=== PATIENT | male | born 1980 | race Caucasian/White ===

== ENCOUNTER 2016-05-25 15:06 | Emergency (ER) | payer SELFPAY ==
[~2016-05-25] VITALS: Ht 167.6 cm; Wt 90.7 kg
[2016-05-25 15:13] VITALS: BP 149/89
--- NOTE | 2016-05-25 15:18 | NUR ---
Patient ambulated to bed 8. RN evaluating patient at bedside.
--- NOTE | 2016-05-25 15:22 | NUR ---
DR WILKINSON ASSESSING THE AAO PT AT BEDSIDE
--- NOTE | 2016-05-25 15:25 | NUR ---
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 ER MD MADE AWARE OF PT STATUS.
[2016-05-25] MEDS ORDERED: NACL 0.9% 1,000 ML IV ONE (15:50)
[2016-05-25] MEDS ORDERED: LORazepam 2 MG/ML VIAL IVP ONE (15:50)
[2016-05-25] MEDS ORDERED: PANTOPRAZOLE 40 MG INJ VIAL IVP ONE (15:50)
[2016-05-25 16:44] VITALS: BP 128/66
--- NOTE | 2016-05-25 16:44 | NUR ---
Patient discharged with v/s stable. Written and verbal after care instructions given and explained. Patient verbalized understanding. Ambulatory with steady gait. All questions addressed prior to discharge. Advised to follow up with PMD.
== END 2016-05-25 16:44 | disposition home or self-care (01) ==
LOC: MED 15:06
DX: F10.239 Alcohol dependence with withdrawal, unspecified (principal); F41.9 Anxiety disorder, unspecified
CPT/HCPCS: 96361; 96374; 96375; 99284; C9113; J2060; J7030

== ENCOUNTER 2016-05-25 19:44 | Emergency (ER) | payer SELFPAY ==
[~2016-05-25] VITALS: Ht 167.6 cm; Wt 90.7 kg
[2016-05-25 19:47] VITALS: BP 150/87
--- NOTE | 2016-05-25 19:55 | NUR ---
TO ER BED 8
--- NOTE | 2016-05-25 20:08 | NUR ---
35Y/M PATIENT PRESENTS TO ED WITH C/O ANXIETY . PT STATES HAVING FEELING ANXIOUS, UNABLE TO REST, CAME TO ED THIS MORNING, WENT BACK HOME, STILL HAVING ANXIETY . DENIES N/V/D; SKIN IS PINK/WARM/DRY; AAOX4 WITH EVEN AND STEADY GAIT; LUNGS CLEAR BL; HR EVEN AND REGULAR; PT DENIES ANY FEVER, CP, SOB, OR COUGH AT THIS TIME; PATIENT STATES PAIN OF 0/10 AT THIS TIME; VSS; PATIENT POSITIONED FOR COMFORT; HOB ELEVATED; BEDRAILS UP X2; BED DOWN. ER MD MADE AWARE OF PT STATUS.
--- NOTE | 2016-05-25 20:10 | NUR ---
Patient being evaluated by DR. MARTIN at bedside.
[2016-05-25] MEDS ORDERED: LORazepam 2 MG/ML VIAL IM ONE (20:15)
--- NOTE | 2016-05-25 20:40 | NUR ---
Patient discharged with v/s stable. Written and verbal after care instructions given and explained. Patient alert, oriented and verbalized understanding of instructions. Ambulatory with steady gait. All questions addressed prior to discharge. ID band removed. Patient advised to follow up with PMD. Rx of XANAX 0.5 MG given. Patient educated on indication of medication including possible reaction and side effects. Opportunity to ask questions provided and answered.
[2016-05-25 21:00] VITALS: BP 143/92
== END 2016-05-25 20:40 | disposition home or self-care (01) ==
LOC: MED 19:44
DX: F41.9 Anxiety disorder, unspecified (principal); F10.10 Alcohol abuse, uncomplicated
CPT/HCPCS: 96372; 99284; J2060

== ENCOUNTER 2016-08-13 09:31 | Emergency (ER) | payer OTHER ==
[~2016-08-13] VITALS: Ht 167.6 cm; Wt 93.0 kg
[2016-08-13 09:34] VITALS: BP 148/71
[2016-08-13] MEDS ORDERED: MULT1CAP64 PO (09:37)
--- NOTE | 2016-08-13 09:39 | NUR ---
Patient ambulated to bed 06.
--- NOTE | 2016-08-13 09:40 | NUR ---
35/M BIB SELF FOR ALCOHOL WITHDRAWALS SINCE YESTERDAY AND SORE THROAT RADIATES TO CHEST ONLY WHEN COUGHING X5DAYS. HX ALCOHOLISM. DENIES N/V/D; SKIN IS PINK/WARM/DRY; AAOX4 WITH EVEN AND STEADY GAIT; LUNGS CLEAR BL; HR EVEN AND REGULAR; PT DENIES ANY FEVER, CP, SOB, OR COUGH AT THIS TIME; PATIENT STATES PAIN OF 7/10 AT THIS TIME; PATIENT POSITIONED FOR COMFORT; HOB ELEVATED; BEDRAILS UP X2; BED DOWN. RAMÓN MCBRIDE MADE AWARE OF PT STATUS. Addendum: 08/13/16 at 1007 by MED1 PT STATED ; PHLEGM IS GREEN & YELLOWISH.
--- NOTE | 2016-08-13 09:41 | NUR ---
Dr. Reyes evaluating patient at bedside.
--- NOTE | 2016-08-13 09:41 | NUR ---
Suzette cesar in [facility] - 08/13/16 at [address] Reyes evaluating patient at bedside.
--- NOTE | 2016-08-13 10:05 | NUR ---
PT AMB TO REST ROOM & URENTED. SENT SPECIMEN TO LAB.
--- NOTE | 2016-08-13 10:27 | NUR ---
LAB AT BEDSIDE.
--- NOTE | 2016-08-13 10:38 | NUR ---
Patient appears to be resting comfortably in bed. Vital Signs within normal limits. Respirations even and unlabored.WILL CONTINUE TO MONITOR.
[2016-08-13 10:43] LABS: BASOPHILS # (AUTO) 0.3 K/uL (0.00-0.22); BASOPHILS % (AUTO) 4.5 % (0.0-2.0); EOSINOPHILS # (AUTO) 0.2 K/uL (0-0.4); HEMATOCRIT 43.3 % (36-52); HEMOGLOBIN 14.5 g/dL (12.0-18.0); LYMPHOCYTES # (AUTO) 2.3 K/uL (2.0-11.5); LYMPHOCYTES % (AUTO) 39.8 % (20.5-51.1); MEAN CORPUSCULAR HEMOGLOBIN 29 pg (27-31); MEAN CORPUSCULAR HGB CONC 34 g/dL (33-37); MEAN CORPUSCULAR VOLUME 85 fL (80-94); MONOCYTES # (AUTO) 0.6 K/uL (0.8-1.0); MONOCYTES % (AUTO) 10.1 % (1.7-9.3); NEUTROPHILS # (AUTO) 2.3 K/uL (1.8-7.7); NEUTROPHILS % (AUTO) 42.6 % (42.2-75.2); PLATELET COUNT (AUTO) 259 K/uL (140-450); RED BLOOD CELL COUNT(AUTO) 5.08 MIL/uL (4.20-6.10); RED CELL DISTRIBUTION WIDTH 13.5 % (11.6-13.7); WHITE BLOOD COUNT (AUTO) 5.7 K/uL (4.8-10.8)
[2016-08-13 10:48] LABS: ANION GAP 9.6 (8-16); CALCIUM 8.8 mg/dL (8.5-10.1); CARBON DIOXIDE 32.2 mmol/L (21-32); CREATININE 0.9 mg/dL (0.7-1.3); POTASSIUM 3.8 mmol/L (3.5-5.1); TOTAL BILIRUBIN 0.4 mg/dL (0.0-1.0); TOTAL PROTEIN, SERUM 8.6 g/dL (6.4-8.2)
[2016-08-13 11:11] LABS: AMPHETAMINE, URINE NEG. ng/ml (NEG <=1000); BARBITURATE, URINE NEG. ng/ml (NEG <=200); BENZODIAZEPINE, URINE NEG. ng/mL (NEG <=200); CANNABINOID, URINE NEG. ng/mL (NEG <=50); COCAINE, URINE NEG. ng/mL (NEG <=300); OPIATE, URINE NEG. ng/mL (NEG <=2000); PHENCYCLIDINE SCREEN,URINE NEG. ng/mL (NEG <=25)
--- NOTE | 2016-08-13 12:38 | NUR ---
Suzette cesar in [facility] - 08/13/16 at 1238 by MED1 PT AMB TO REST ROOM & URENTED.
--- NOTE | 2016-08-13 12:38 | NUR ---
PT AMB TO REST ROOM & URENATED.
--- NOTE | 2016-08-13 12:44 | NUR ---
ER MD DR BERTRAND REEVALUATING PT AT BEDSIDE.
[2016-08-13 13:16] VITALS: BP 129/91
== END 2016-08-13 13:17 | disposition home or self-care (01) ==
LOC: MED 09:31
DX: F10.229 Alcohol dependence with intoxication, unspecified (principal); Y90.9 Presence of alcohol in blood, level not specified; F17.200 Nicotine dependence, unspecified, uncomplicated
CPT/HCPCS: 36415; 80053; 80305; 81002; 82150; 83690; 85025; 99284; G0482

== ENCOUNTER 2016-11-03 12:02 | Emergency (ER) | payer OTHER ==
[~2016-11-03] VITALS: Ht 165.1 cm; Wt 93.0 kg
[~2016-11-03 12:02] MED LIST: MULT1CAP64 PO
[2016-11-03 12:29] VITALS: BP 145/95
--- NOTE | 2016-11-03 12:35 | NUR ---
35/M PRESENT TO ER C/O ALCOHOL WITHDRAWAL SYMPTOMS x 4 DAYS. DENIES DIARRHEA; SKIN IS PINK/WARM/DRY; AAOX4 WITH EVEN AND STEADY GAIT; LUNGS CLEAR BL; HR EVEN AND REGULAR; PT DENIES ANY FEVER, CP, SOB, OR COUGH AT THIS TIME; PATIENT STATES PAIN OF 0/10 AT THIS TIME; VSS; PATIENT POSITIONED FOR COMFORT; HOB ELEVATED; BEDRAILS UP X2; BED DOWN. ER MD MADE AWARE OF PT STATUS.
--- NOTE | 2016-11-03 12:38 | NUR ---
PATIENT REFUSED GOWN. PATIENT REFUSED EKG STATING FEELING "TRAPPED"
--- NOTE | 2016-11-03 13:05 | NUR ---
DR ALVAREZ EVALUATING AAO PT AT BEDSIDE
[2016-11-03] MEDS ORDERED: MULTIVITAMIN-12 10 ML, THIAMINE 100 MG, MAGNESIUM SULFATE 50% 2,000 MG, FOLIC ACID 5 MG... IV ONE ×5 (13:06)
[2016-11-03] MEDS ORDERED: LORazepam 2 MG/ML VIAL IVP ONE (13:10)
[2016-11-03 13:46] LABS: BASOPHILS # (AUTO) 0.3 K/uL (0.00-0.22); BASOPHILS % (AUTO) 4.6 % (0.0-2.0); EOSINOPHILS # (AUTO) 0.3 K/uL (0-0.4); EOSINOPHILS % (AUTO) 4.7 % (0.0-4.0); HEMATOCRIT 43.8 % (36-52); HEMOGLOBIN 14.8 g/dL (12.0-18.0); LYMPHOCYTES # (AUTO) 2.2 K/uL (2.0-11.5); LYMPHOCYTES % (AUTO) 36.9 % (20.5-51.1); MEAN CORPUSCULAR HEMOGLOBIN 29 pg (27-31); MEAN CORPUSCULAR HGB CONC 34 g/dL (33-37); MEAN CORPUSCULAR VOLUME 86 fL (80-94); MONOCYTES # (AUTO) 0.6 K/uL (0.8-1.0); MONOCYTES % (AUTO) 10.6 % (1.7-9.3); NEUTROPHILS # (AUTO) 2.7 K/uL (1.8-7.7); NEUTROPHILS % (AUTO) 43.2 % (42.2-75.2); PLATELET COUNT (AUTO) 236 K/uL (140-450); RED CELL DISTRIBUTION WIDTH 12.8 % (11.6-13.7); WHITE BLOOD COUNT (AUTO) 6.1 K/uL (4.8-10.8)
[2016-11-03 13:54] LABS: APPEARANCE,URINE CLEAR (CLEAR); BILIRUBIN,URINE NEGATIVE (NEGATIVE); BLOOD, URINE NEGATIVE (NEGATIVE); COLOR,URINE YELLOW (YELLOW); LEUKOCYTE ESTERASE ,URINE NEGATIVE (NEGATIVE); NITRITE, URINE NEGATIVE (NEGATIVE); PH,URINE 6.5 (5.0-9.0); UGLUCOSE NEGATIVE (NEGATIVE)
[2016-11-03 13:56] LABS: ANION GAP 15.3 (8-16); CARBON DIOXIDE 28.4 mmol/L (21-32); CREATININE 0.8 mg/dL (0.7-1.3); POTASSIUM 3.7 mmol/L (3.5-5.1)
[2016-11-03 13:59] LABS: BARBITURATE, URINE NEG. ng/ml (NEG <=200); BENZODIAZEPINE, URINE NEG. ng/mL (NEG <=200); CANNABINOID, URINE NEG. ng/mL (NEG <=50); COCAINE, URINE NEG. ng/mL (NEG <=300); OPIATE, URINE NEG. ng/mL (NEG <=2000); PHENCYCLIDINE SCREEN,URINE NEG. ng/mL (NEG <=25)
[2016-11-03 14:04] LABS: ALBUMIN 4.2 g/dL (3.4-5.0); TOTAL BILIRUBIN 0.6 mg/dL (0.0-1.0)
--- NOTE | 2016-11-03 14:47 | NUR ---
1 MG LORAZEPAM WAS GIVEN TO PT;1 MG WAS WASTED IN THE PHARMACEUTICAL WASTE BIN.
[2016-11-03 16:35] VITALS: BP 132/80
== END 2016-11-03 16:35 | disposition home or self-care (01) ==
LOC: MED 12:02
DX: G92 Toxic encephalopathy (principal)
CPT/HCPCS: 36415; 80053; 80305; 81003; 85025; 96365; 96366; 96375; 99285; A9153; G0482; J2060; J3411; J3475; J3490; J7030

== ENCOUNTER 2018-09-21 19:28 | Emergency (ER) | payer OTHER ==
[~2018-09-21] VITALS: Ht 167.6 cm; Wt 90.7 kg
[2018-09-21 19:43] VITALS: BP 130/99
--- NOTE | 2018-09-21 19:43 | NUR ---
TO BED # 03 AMBULATORY
--- NOTE | 2018-09-21 20:00 | NUR ---
PT BIB SELF FOR ALCOHOL WITHDRAWL, PT HAS BEEN DRINKING SINCE THURSDAY AND STATES HE MISSED 2 DAYS OF WORK AND WOULD LIKE INFORMATION FOR [facility]. PT DENIES ANY SEIZURE DISORDERS, OR SI. PT AWAKE AND ALERT SITTING IN BED.
--- NOTE | 2018-09-21 20:05 | NUR ---
DR DEMARCO AT BEDSIDE.
[2018-09-21 20:21] VITALS: BP 135/88
--- NOTE | 2018-09-21 20:21 | NUR ---
DISCHARGE PAPERS GIVEN TO PT. ALERT TO NAME, PLACE, TIME, AND EVENT. 0/10 PAIN WITH VSS. RX OF LIBRIUM GIVEN. SIDE EFFECTS EXPLAINED. PROVIDED WITH ALCOHOLICS ANNONYMOUS HELP PACKET. PT STATES HE WILL DO HIS BEST AND TRY CONTACTING RESOURCES PROVIDED. PT VERBALLIZED UNDERSTANDING OF DC INSTRUCTIONS. ALL QUESTIONS ANSWERED.
== END 2018-09-21 20:21 | disposition home or self-care (01) ==
LOC: MED 19:28
DX: F10.239 Alcohol dependence with withdrawal, unspecified (principal); R25.1 Tremor, unspecified; Z79.899 Other long term (current) drug therapy
CPT/HCPCS: 99283

== ENCOUNTER 2019-12-25 20:19 | Emergency (ER) | payer OTHER ==
[~2019-12-25] VITALS: Ht 167.6 cm; Wt 86.2 kg
[2019-12-25 20:35] VITALS: BP 128/102
--- NOTE | 2019-12-25 20:38 | NUR ---
TRIAGE COMPLETE. DR MARTIN AWARE OF TRIAGE BLOOD PRESSURE. NO FUTHER ORDERS RECEIVED. PT INSTRUCTED TO RETURN TO LOBBY PENDING BED AVAILABILITY.
[2019-12-25] MEDS ORDERED: MULTIVITAMIN-12 10 ML, THIAMINE 100 MG, FOLIC ACID 1 MG, MAGNESIUM SULFATE 50% 2,000 MG... IV SCH ×5 (21:30)
--- NOTE | 2019-12-25 21:40 | NUR ---
PT ASSESSMENT COMPLETED BY NITZA MARTIN , NO NURSING INTERVENTION NEEDED AT THIS TIME.
[2019-12-25] MEDS ORDERED: MULTIVITAMIN-12 10 ML VIAL IV ONE (21:53)
[2019-12-25] MEDS ORDERED: FOLIC ACID 5 MG/ML SYR ONE (21:55)
[2019-12-25] MEDS ORDERED: THIAMINE 200 MG/2 ML VIAL ONE (21:55)
[2019-12-25] MEDS ORDERED: MAG SULF 2000 MG/WATER PREMIX 0 ML IV ONE (21:56)
--- NOTE | 2019-12-25 22:00 | NUR ---
PT REFUSED MEDICATION ORDER AT THIS TIME. ERMD MADE AWARE - OK TO DISCHARGE PT AT THIS TIME.
--- NOTE | 2019-12-25 22:07 | NUR ---
PT STATES HE IS FEELING BETTER AND WILL BE GETTING A RIDE WITH AN UBER AT THIS TIME.
[2019-12-25 22:08] VITALS: BP 121/95
== END 2019-12-25 22:08 | disposition home or self-care (01) ==
LOC: MED 20:19
DX: F10.10 Alcohol abuse, uncomplicated (principal); R11.10 Vomiting, unspecified
CPT/HCPCS: 99283; A9153; J3411; J3475; J3490

== ENCOUNTER 2020-07-17 08:15 | Emergency (ER) | payer OTHER ==
[~2020-07-17] VITALS: Ht 167.6 cm; Wt 86.2 kg
[2020-07-17 08:20] VITALS: BP 91/54
--- NOTE | 2020-07-17 08:26 | NUR ---
PT AMBULATED TO BED 3.
[2020-07-17] MEDS ORDERED: ONDANSETRON 4 MG/2 ML VIAL IVP ONE (08:40)
[2020-07-17] MEDS ORDERED: LORazepam 2 MG/ML VIAL IVP ONE (08:40)
[2020-07-17] MEDS ORDERED: NACL 0.9% 2,000 ML IV ONE (08:40)
--- NOTE | 2020-07-17 08:54 | NUR ---
39 YEAR OLD MALE COMPLAINS OF NAUSEA, VOMITTING X YESTERDAY. PT STATES THAT HE HAS BEEN BINGE DRINKING SINCE THURSDAY AND HAS HAD LAST DRINK 20MINS AGO. PT AOX4, BREATHING EVEN AND UNLABORED, SKIN WARM AND DRY. BED IN LOWEST POSITION, LOCKED, BED RAIL UPX1. PMH - DENIES ALLERGIES - NKA
[2020-07-17 08:55] LABS: BASOPHILS # (AUTO) 0.1 K/uL (0.00-0.22); BASOPHILS % (AUTO) 1.2 % (0.0-2.0); EOSINOPHILS # (AUTO) 0.1 K/uL (0-0.4); EOSINOPHILS % (AUTO) 2.8 % (0.0-4.0); HEMATOCRIT 43.9 % (36-52); HEMOGLOBIN 15.2 g/dL (12.0-18.0); LYMPHOCYTES # (AUTO) 1.8 K/uL (2.0-11.5); LYMPHOCYTES % (AUTO) 33.5 % (20.5-51.1); MEAN CORPUSCULAR HEMOGLOBIN 29 pg (27-31); MEAN CORPUSCULAR HGB CONC 35 g/dL (33-37); MEAN CORPUSCULAR VOLUME 84.7 fL (80-94); MONOCYTES # (AUTO) 0.4 K/uL (0.8-1.0); MONOCYTES % (AUTO) 7.4 % (1.7-9.3); NEUTROPHILS # (AUTO) 2.9 K/uL (1.8-7.7); NEUTROPHILS % (AUTO) 55.1 % (42.2-75.2); PLATELET COUNT (AUTO) 257 K/uL (140-450); RED BLOOD CELL COUNT(AUTO) 5.19 MIL/uL (4.20-6.10); RED CELL DISTRIBUTION WIDTH 13.6 % (11.6-13.7); WHITE BLOOD COUNT (AUTO) 5.3 K/uL (4.8-10.8)
[2020-07-17 09:09] LABS: ANION GAP 19.5 (8-16); CARBON DIOXIDE 25.2 mmol/L (21-32); CREATININE 0.9 mg/dL (0.6-1.3); POTASSIUM 3.7 mmol/L (3.5-5.1)
[2020-07-17 09:14] LABS: ALBUMIN 4.4 g/dL (3.4-5.0); TOTAL BILIRUBIN 0.7 mg/dL (0.0-1.0)
--- NOTE | 2020-07-17 09:30 | NUR ---
PT ALERT AND AWAKE, BREATHING EVEN AND UNLABORED
[2020-07-17 09:55] LABS: BARBITURATE, URINE NEGATIVE ng/ml (NEG <=200); BENZODIAZEPINE, URINE NEGATIVE ng/mL (NEG <=200); CANNABINOID, URINE NEGATIVE ng/mL (NEG <=50); COCAINE, URINE NEGATIVE ng/mL (NEG <=300); OPIATE, URINE NEGATIVE ng/mL (NEG <=2000); PHENCYCLIDINE SCREEN,URINE NEGATIVE ng/mL (NEG <=25)
[2020-07-17] MEDS ORDERED: LORA-476 PO (10:44)
--- NOTE | 2020-07-17 10:55 | NUR ---
Patient discharged with v/s stable. Written and verbal after care instructions about alcohol withdrawal syndrome given and explained. Patient alert, oriented and verbalized understanding of instructions. Ambulatory with steady gait. All questions addressed prior to discharge. ID band removed. Patient advised to follow up with PMD. Rx of lorazepam given. Patient educated on indication of medication including possible reaction and side effects. Opportunity to ask questions provided and answered.
[2020-07-17 10:58] VITALS: BP 111/62
== END 2020-07-17 10:55 | disposition home or self-care (01) ==
LOC: MED 08:15
DX: F10.231 Alcohol dependence with withdrawal delirium (principal); Z79.899 Other long term (current) drug therapy
CPT/HCPCS: 36415; 80053; 80305; 81002; 83690; 85025; 96361; 96374; 96375; 99284; G0482; J2060; J2405; J7030

== ENCOUNTER 2020-10-15 14:43 | Emergency (ER) | payer OTHER ==
[~2020-10-15] VITALS: Ht 167.6 cm; Wt 87.8 kg
[~2020-10-15 14:43] MED LIST changes: +LORA-476 PO
[2020-10-15 15:40] VITALS: BP 144/104
[2020-10-15 15:46] VITALS: BP 144/104
--- NOTE | 2020-10-15 15:46 | NUR ---
PT TO RAMÓN HOWE
[2020-10-15] MEDS ORDERED: LORazepam 0.5 MG TAB PO ONE (15:55)
[2020-10-15] MEDS ORDERED: ATI.5 PO (15:57)
[2020-10-15] MEDS ORDERED: ONDA-24 SL (16:17)
== END 2020-10-15 16:20 | disposition home or self-care (01) ==
LOC: MED 14:43
DX: F10.239 Alcohol dependence with withdrawal, unspecified (principal); Y90.9 Presence of alcohol in blood, level not specified; Z79.899 Other long term (current) drug therapy
CPT/HCPCS: 99283

== ENCOUNTER 2020-10-31 10:51 | Emergency (ER) | payer OTHER ==
[~2020-10-31] VITALS: Ht 167.6 cm; Wt 89.4 kg
[~2020-10-31 10:51] MED LIST changes: +ATI.5 PO; +ONDA-24 SL
[2020-10-31 11:00] VITALS: BP 136/93
--- NOTE | 2020-10-31 11:10 | NUR ---
PT TAKEN TO ER BED 1
[2020-10-31] MEDS ORDERED: HYDROXYZINE HYDROCHLORIDE 25 MG TAB PO STA (11:22)
[2020-10-31] MEDS ORDERED: ATA25 PO (11:25)
--- NOTE | 2020-10-31 11:28 | NUR ---
SECURITY PAGED TO TAKE PTS ALCOHOL BOTTLES.
--- NOTE | 2020-10-31 11:37 | NUR ---
PT PROVIDED WITH SUBSTANCE USE DISORDER PACKET
--- NOTE | 2020-10-31 11:40 | NUR ---
39 Y/O MALE BIB SELF C/O FEARS OF ALCOHOL WITHDRAWAL. PT STATES HE HAS BEEN DRINKING SINCE THURSDAY. PT STATES THAT HE ATTEMPTED TO STOP YESTERDAY BUT WAS UNSUCCESSFUL. LAST DRINK X20 MINS AGO. +BEER AND LIQUOR. PT IS RECOVERING ALCOHOLIC. PT PRESENTS WITH 2 SMALL BOTTLES OF [place] ALCOHOL. PT WENT TO URGENT CARE PRIOR TO COMING TO ED AND WAS NOT GIVEN HELP BECAUSE "I AM NOT SHAKING OR CURRENTLY WITHDRAWLING" PMH:ALCOHOL AND DRUG USE NKDA
--- NOTE | 2020-10-31 11:47 | NUR ---
PROVIDED PT WITH MENTAL HEALTH RESOURCE PACKET
[2020-10-31 11:48] VITALS: BP 136/93
--- NOTE | 2020-10-31 11:49 | NUR ---
Patient discharged with v/s stable. Written and verbal after care instructions given and explained. Patient alert, oriented and verbalized understanding of instructions. Ambulatory with steady gait. All questions addressed prior to discharge. ID band removed. Patient advised to follow up with PMD. Rx of ATARAX given. Patient educated on indication of medication including possible reaction and side effects. Opportunity to ask questions provided and answered. PT HAS BEEN PROVIDED WITH SUBSTANCE USE DISORDER AND MENTAL HEALTH DISORDER PACKET
== END 2020-10-31 11:44 | disposition home or self-care (01) ==
LOC: MED 10:51
DX: F10.20 Alcohol dependence, uncomplicated (principal)
CPT/HCPCS: 99283

== ENCOUNTER 2022-03-31 05:05 | Emergency (ER) | payer OTHER ==
[~2022-03-31 05:05] MED LIST changes: +ATA25 PO; +ONDA-188 SL; -ONDA-24 SL
--- NOTE | 2022-03-31 05:29 | NUR ---
Called no show in lobby or outside.
--- NOTE | 2022-03-31 05:56 | NUR ---
Patient left before triage.
== END 2022-03-31 05:56 | disposition left against medical advice (07) ==
LOC: MED 05:05
DX: F41.9 Anxiety disorder, unspecified (principal); Z53.21 Procedure and treatment not carried out due to patient leaving prior to being seen by health care provider

== ENCOUNTER 2022-11-09 17:29 | Emergency (ER) | payer OTHER ==
[~2022-11-09] VITALS: Ht 167.6 cm; Wt 88.0 kg
[2022-11-09 17:53] VITALS: BP 149/96; PULSE 75; RESP 14; TEMP 98; O2SAT 98
[2022-11-09] MEDS ORDERED: chlordiazePOXIDE 25 MG CAP PO STA (18:37)
[2022-11-09] MEDS ORDERED: LIB25 PO (18:53)
[2022-11-09 19:03] VITALS: BP 149/96; PULSE 75; RESP 14; TEMP 98; O2SAT 98
== END 2022-11-09 19:03 | disposition home or self-care (01) ==
LOC: MED 17:29
DX: F10.239 Alcohol dependence with withdrawal, unspecified (principal); Z79.899 Other long term (current) drug therapy; Y90.9 Presence of alcohol in blood, level not specified
CPT/HCPCS: 99283

== ENCOUNTER 2023-04-27 18:48 | Emergency (ER) | payer OTHER ==
[~2023-04-27] VITALS: Ht 167.6 cm; Wt 90.7 kg
[~2023-04-27 18:48] MED LIST changes: +CHLO-836 PO
[2023-04-27 19:05] VITALS: BP 136/107; PULSE 108; RESP 18; TEMP 98; O2SAT 99
[2023-04-27] MEDS ORDERED: LORazepam 1 MG TAB ONE ×2 (20:21→21:11)
[2023-04-27] MEDS: LORazepam 1 MG TAB PO ONE ×2 (20:24→21:12)
[2023-04-27 20:52] LABS: AMPHETAMINE, URINE POSITIVE ng/ml (NEG <=1000); BARBITURATE, URINE NEGATIVE ng/ml (NEG <=200)
[2023-04-27 20:53] LABS: BENZODIAZEPINE, URINE POSITIVE ng/mL (NEG <=200); CANNABINOID, URINE NEGATIVE ng/mL (NEG <=50); COCAINE, URINE NEGATIVE ng/mL (NEG <=300); OPIATE, URINE NEGATIVE ng/mL (NEG <=2000); PHENCYCLIDINE SCREEN,URINE NEGATIVE ng/mL (NEG <=25)
[2023-04-27] MEDS ORDERED: ATA25 PO (21:16)
== END 2023-04-27 21:37 | disposition home or self-care (01) ==
LOC: MED 18:48
DX: G47.00 Insomnia, unspecified (principal); T43.621A Poisoning by amphetamines, accidental (unintentional), initial encounter; R63.0 Anorexia; Z68.45 Body mass index [BMI] 70 or greater, adult; Z79.899 Other long term (current) drug therapy; Y92.89 Other specified places as the place of occurrence of the external cause
CPT/HCPCS: 80305; 93005; 99284

== ENCOUNTER 2023-06-07 16:47 | Emergency (ER) | payer OTHER ==
[~2023-06-07] VITALS: Ht 167.6 cm; Wt 94.3 kg
[2023-06-07 17:03] VITALS: BP 129/88; PULSE 97; RESP 20; TEMP 97.8; O2SAT 97
[2023-06-07] MEDS ORDERED: CHLO-836 PO (17:39)
[2023-06-07 17:59] VITALS: BP 129/88; PULSE 97; RESP 20; TEMP 97.8; O2SAT 97
== END 2023-06-07 18:01 | disposition home or self-care (01) ==
LOC: MED 16:47
DX: F10.20 Alcohol dependence, uncomplicated (principal); Y90.9 Presence of alcohol in blood, level not specified
CPT/HCPCS: 99281; 99283

== ENCOUNTER 2023-08-14 17:53 | Emergency (ER) | payer OTHER ==
[~2023-08-14] VITALS: Ht 167.6 cm; Wt 93.9 kg
[~2023-08-14 17:53] MED LIST changes: +CHLO-757 PO; -CHLO-836 PO
[2023-08-14 18:02] VITALS: BP 147/98; PULSE 94; RESP 18; TEMP 98.4; O2SAT 93
[2023-08-14] MEDS ORDERED: ATI.5 PO (18:31)
[2023-08-14 19:16] VITALS: BP 137/79; PULSE 81; RESP 12; TEMP 98.1; O2SAT 96
== END 2023-08-14 19:16 | disposition home or self-care (01) ==
LOC: MED 17:53
DX: F41.9 Anxiety disorder, unspecified (principal); F10.20 Alcohol dependence, uncomplicated; Y90.9 Presence of alcohol in blood, level not specified; Z79.899 Other long term (current) drug therapy
CPT/HCPCS: 99283

== ENCOUNTER 2023-08-18 18:14 | Emergency (ER) | payer OTHER ==
[~2023-08-18] VITALS: Ht 167.6 cm; Wt 92.5 kg
[2023-08-18 18:43] VITALS: BP 142/95; PULSE 80; RESP 22; TEMP 98.4; O2SAT 99
[2023-08-18] MEDS: LORazepam 1 MG TAB PO ONE (21:53)
[2023-08-18 21:54] VITALS: BP 136/95; PULSE 78; RESP 18; TEMP 98.4; O2SAT 99
== END 2023-08-18 21:54 | disposition home or self-care (01) ==
LOC: MED 18:14
DX: F10.239 Alcohol dependence with withdrawal, unspecified (principal); F41.9 Anxiety disorder, unspecified; Z76.0 Encounter for issue of repeat prescription; Z79.899 Other long term (current) drug therapy
CPT/HCPCS: 99283

== ENCOUNTER 2023-10-29 20:05 | Emergency (ER) | payer OTHER ==
[~2023-10-29] VITALS: Ht 167.6 cm; Wt 92.3 kg
[2023-10-29 20:08] VITALS: BP 116/84; PULSE 100; RESP 20; TEMP 98.3
[2023-10-29] MEDS: NACL 0.9% 1,000 ML IV ONE (21:19)
[2023-10-29 21:25] LABS: BASOPHILS # (AUTO) 0.1 K/uL (0.00-0.22); BASOPHILS % (AUTO) 1.9 % (0.0-2.0); EOSINOPHILS # (AUTO) 0.2 K/uL (0-0.4); EOSINOPHILS % (AUTO) 2.8 % (0.0-4.0); HEMATOCRIT 45.6 % (36-52); HEMOGLOBIN 15.7 g/dL (12.0-18.0); LYMPHOCYTES # (AUTO) 3.3 K/uL (2.0-11.5); LYMPHOCYTES % (AUTO) 51.3 % (20.5-51.1); MEAN CORPUSCULAR HEMOGLOBIN 29 pg (27-31); MEAN CORPUSCULAR HGB CONC 35 g/dL (33-37); MEAN CORPUSCULAR VOLUME 85.1 fL (80-94); MONOCYTES # (AUTO) 0.6 K/uL (0.8-1.0); MONOCYTES % (AUTO) 9.2 % (1.7-9.3); NEUTROPHILS # (AUTO) 2.2 K/uL (1.8-7.7); NEUTROPHILS % (AUTO) 34.8 % (42.2-75.2); PLATELET COUNT (AUTO) 274 K/uL (140-450); RED BLOOD CELL COUNT(AUTO) 5.36 MIL/uL (4.20-6.10); RED CELL DISTRIBUTION WIDTH 13.8 % (11.6-13.7); WHITE BLOOD COUNT (AUTO) 6.4 K/uL (4.8-10.8)
[2023-10-29 21:40] LABS: ALBUMIN 4.1 g/dL (3.4-5.0); ANION GAP 15.8 (8-16); CALCIUM 9.5 mg/dL (8.5-10.1); CREATININE 0.8 mg/dL (0.6-1.3); POTASSIUM 3.8 mmol/L (3.5-5.1); TOTAL BILIRUBIN 0.6 mg/dL (0.0-1.0); TOTAL PROTEIN, SERUM 8.5 g/dL (6.4-8.2)
[2023-10-29] MEDS: LACTATED RINGERS 1,000 ML IV ONE (22:55)
[2023-10-30] MEDS: LORazepam 0.5 MG TAB PO ONE (00:26)
[2023-10-30 01:30] VITALS: BP 120/77; PULSE 82; RESP 18; TEMP 98; O2SAT 96
[2023-10-30 02:15] LABS: AMPHETAMINE, URINE NEGATIVE ng/ml (NEG <=1000); BARBITURATE, URINE NEGATIVE ng/ml (NEG <=200)
[2023-10-30 02:16] LABS: BENZODIAZEPINE, URINE POSITIVE ng/mL (NEG <=200); CANNABINOID, URINE NEGATIVE ng/mL (NEG <=50); COCAINE, URINE NEGATIVE ng/mL (NEG <=300); OPIATE, URINE NEGATIVE ng/mL (NEG <=2000); PHENCYCLIDINE SCREEN,URINE NEGATIVE ng/mL (NEG <=25)
== END 2023-10-30 01:30 | disposition home or self-care (01) ==
LOC: MED 20:05
DX: F10.129 Alcohol abuse with intoxication, unspecified (principal); F41.9 Anxiety disorder, unspecified; R74.01 Elevation of levels of liver transaminase levels; Z79.899 Other long term (current) drug therapy; Y90.8 Blood alcohol level of 240 mg/100 ml or more
CPT/HCPCS: 36415; 80053; 80305; 83690; 85025; 96360; 99283; G0482; J7030